=== PATIENT | female | born 1995 | race Two or more races ===

== ENCOUNTER 2023-11-18 03:03 | Inpatient (IN) | payer BC ==
[2023-11-18] MEDS ORDERED: Misoprostol 50 MCG (1/2 of 100 MCG) Tab VAG SCH (23:45)
[2023-11-18] MEDS ORDERED: Oxytocin/Normal Saline 30 UNIT/500 ML BAG IV SCH (23:45)
[2023-11-18] MEDS ORDERED: Sodium Chloride 0.9% 10 ML Syringe FLUSH PRN (23:54)
[2023-11-18] MEDS ORDERED: Tranexamic Acid 1,000 MG in Sodium Chloride 0.9% 100 ML IV PRN (23:54)
[2023-11-18] MEDS ORDERED: Methylergonovine 0.2 MG/1 ML Amp IM PRN (23:54)
[2023-11-18] MEDS ORDERED: Misoprostol 400 MCG (4 X 100 MCG TAB) RECTAL PRN (23:54)
[2023-11-18] MEDS ORDERED: Carboprost Tromethamine 250 MCG/1 ML Amp IM PRN (23:54)
[2023-11-18] MEDS ORDERED: Lidocaine 1% 30 ML SDV INJECT ONE (23:54)
[2023-11-18] MEDS ORDERED: Acetaminophen 325 MG Tab PO PRN (23:54)
[2023-11-18] MEDS ORDERED: Ondansetron 4 MG/2 ML SDV IVPUSH PRN (23:54)
[2023-11-18] MEDS ORDERED: Misoprostol 25 MCG (1/4 of 100 MCG) Tab VAG PRN (23:54)
[2023-11-19] MEDS: Oxytocin/Normal Saline 30 UNIT/500 ML BAG IV SCH (05:53)
[2023-11-19] MEDS: Lactated Ringers 1,000 ML IV SCH (05:53)
[2023-11-19 06:41] LABS: HEMOGLOBIN 12.4 g/dL (12.0-16.0); MEAN CORPUSCULAR HEMOGLOBIN 28.8 pg (27.0-34.0); MEAN CORPUSCULAR HGB CONC 31.8 g/dL (33.0-35.0); MEAN CORPUSCULAR VOLUME 90.5 fL (80-100); RED BLOOD CELL COUNT 4.31 10^6/uL (4.2-5.4); WHITE BLOOD CELL COUNT,WBC 7.1 10^3/uL (5.0-10.0)
[2023-11-19] MEDS: fentaNYL 100 MCG/2 ML SDV IVPUSH PRN (10:37)
[2023-11-19] MEDS ORDERED: fentaNYL 100 MCG/2 ML SDV ONE ×2 (13:20→21:32)
[2023-11-19] MEDS ORDERED: Bupivacaine 0.25% 10 ML SDV ONE ×2 (13:21→21:32)
[2023-11-19] MEDS: Lactated Ringers 1,000 ML IV ONE (13:34)
[2023-11-19] MEDS ORDERED: Phenylephrine HCl In 0.9% NaCl 1 MG/10 ML Syringe IVPUSH PRN (14:00)
[2023-11-19] MEDS ORDERED: Ropivacaine 200 MG in Premix Bag 1 BAG EPIDUR SCH (14:00)
[2023-11-19] MEDS: ePHEDrine 50 MG/ML SDV IVPUSH PRN (14:30)
[2023-11-20] MEDS ORDERED: Simethicone 80 MG Tab.Chew PO PRN (02:47)
[2023-11-20] MEDS ORDERED: Oxytocin 10 Units/1 ML SDV IM PRN (02:47)
[2023-11-20] MEDS: Benzocaine/Menthol 20%-0.5% Spray 78 GM Cannister TOP PRN (04:08)
[2023-11-20] MEDS: Ibuprofen 800 MG Tab PO SCH (04:08)
[2023-11-20] MEDS: Witch Hazel Medicated Pads 100/Jar TOP PRN (04:08)
[2023-11-20] MEDS: Docusate Sodium 100 MG Cap PO PRN (08:44)
[2023-11-20] MEDS: Prenatal Multivitamin with Calcium/Folic Acid/Iron Tab PO SCH (08:44)
[2023-11-21] MEDS: Acetaminophen 325 MG Tab PO PRN (09:37)
[2023-11-22] MEDS: Measles, Mumps & Rubella Vaccine 0.5 ML SDV SUBCUT ONE (15:44)
[2023-11-22] MEDS ORDERED: Ondansetron 4 MG/2 ML SDV IV ONE (16:14)
[2023-11-22] MEDS ORDERED: Ropivacaine 100 ML EPIDUR ONE (16:14)
[2023-11-22] MEDS ORDERED: Ketorolac 30 MG/ML SDV IVPUSH ONE (16:14)
[2023-11-22] MEDS ORDERED: fentaNYL 100 MCG/2 ML SDV EPIDUR ONE (16:14)
[2023-11-22] MEDS ORDERED: Bupivacaine 0.25% 10 ML SDV NERVRT ONE (16:14)
== END 2023-11-22 16:15 | disposition home or self-care (01) | DRG 560 ==
LOC: DL.OB 11-19 00:18 → OBSVTOIN 11-20 01:48
PROVIDERS: ADMIT Family Medicine; ATTEND Family Medicine
PROC: 10E0XZZ Delivery of Products of Conception, External Approach (ICD-10-PCS; principal; 2023-11-20)
PROC: 0KQM0ZZ Repair Perineum Muscle, Open Approach (ICD-10-PCS; 2023-11-20)
DX: O48.0 Post-term pregnancy (principal); Z37.0 Single live birth; O70.1 Second degree perineal laceration during delivery; Z3A.40 40 weeks gestation of pregnancy
CPT/HCPCS: 01967; 36415; 51702; 59409; 85027; 90471; 90707; A9270-GY; J0665; J1885; J2405; J2590; J2795; J3010; J3490; J7120